=== PATIENT | male | born 1990 | race Two or more races ===

== ENCOUNTER 2017-05-03 03:33 | Emergency (ER) | payer SELFPAY ==
[~2017-05-03] VITALS: Ht 175.3 cm; Wt 95.5 kg
[2017-05-03 07:40] VITALS: BP 143/98
== END 2017-05-03 07:33 | disposition home or self-care (01) ==
LOC: ER 03:33
DX: J45.909 Unspecified asthma, uncomplicated (principal); Z76.0 Encounter for issue of repeat prescription; Z88.8 Allergy status to other drugs, medicaments and biological substances